=== PATIENT | male | born 1940 | race Two or more races ===

== ENCOUNTER 2017-07-20 21:58 | Emergency (ER) | payer OTHER ==
[~2017-07-20] VITALS: Ht 170.2 cm; Wt 85.3 kg
[~2017-07-20 21:58] MED LIST: CLOPIDOGREL BIS75 MG; FLEXERIL10 MG PO; GLUCOTROL5 MG/BOTTL; GLYBURIDE5 MG; HYDROCHLOROTHIA25 MG; IBUPROFEN800 MG PO; NABUMETONE750 MG PO; NORVASC5 MG; PLAVIX75 MG; PROTONIX40 MG PO; TENORMIN25 MG; ULTRACET PO; VASOTEC20 MG; ZANTAC300 MG PO
== END 2017-07-21 05:52 | disposition home or self-care (01) ==
LOC: ER 21:58 → CPU-OBS 21:59 → ER 21:59
DX: R07.89 Other chest pain (principal)
CPT/HCPCS: 93005; G0379

== ENCOUNTER 2019-11-09 11:36 | Emergency (ER) | payer OTHER ==
[~2019-11-09] VITALS: Ht 170.2 cm; Wt 83.5 kg
== END 2019-11-09 14:14 | disposition home or self-care (01) ==
LOC: ER 11:36
DX: S91.332A Puncture wound without foreign body, left foot, initial encounter (principal); W45.0XXA Nail entering through skin, initial encounter; Y93.01 Activity, walking, marching and hiking; Y92.413 State road as the place of occurrence of the external cause; Y99.8 Other external cause status

== ENCOUNTER 2020-11-10 07:43 | Inpatient (IN) | payer OTHER ==
[~2020-11-10] VITALS: Ht 170.2 cm; Wt 79.4 kg
[2020-11-10] MEDS ORDERED: TOPROL XL25 M1 (07:49)
[2020-11-10] MEDS ORDERED: GLIPIZIDE ER5 MG (07:49)
[2020-11-10] MEDS ORDERED: ZESTRIL20 MG (07:49)
[2020-11-10] MEDS ORDERED: PLAVIX75 MG (07:49)
[2020-11-10] MEDS ORDERED: DILTIAZEM ER120 M2 (07:50)
[2020-11-10] MEDS ORDERED: HYDROCHLOROTHIA25 MG (07:50)
== END 2020-11-13 15:39 | disposition home or self-care (01) | DRG 310 ==
LOC: ER 07:43 → MEDJ 13:23 → SEC-K 13:23 → MEDJ 15:59
PROVIDERS: ADMIT Specialist; ATTEND Specialist
PROC: B24BZZZ Ultrasonography of Heart with Aorta (ICD-10-PCS; 2020-11-10)
PROC: 4A12X4Z Monitoring of Cardiac Electrical Activity, External Approach (ICD-10-PCS; principal; 2020-11-11)
DX: I48.91 Unspecified atrial fibrillation (principal); I11.0 Hypertensive heart disease with heart failure; E11.9 Type 2 diabetes mellitus without complications; I50.9 Heart failure, unspecified; Z20.822 Contact with and (suspected) exposure to COVID-19; Z79.84 Long term (current) use of oral hypoglycemic drugs

== ENCOUNTER 2021-02-21 19:28 | Emergency (ER) | payer OTHER ==
[~2021-02-21] VITALS: Ht 170.2 cm; Wt 83.5 kg
[~2021-02-21 19:28] MED LIST changes: +DILTIAZEM ER120 M2; +GLIPIZIDE ER5 MG; +TOPROL XL25 M1; +ZESTRIL20 MG
== END 2021-02-21 22:37 | disposition home or self-care (01) ==
LOC: ER 19:28
DX: I10 Essential (primary) hypertension (principal); Z11.52 Encounter for screening for COVID-19

== ENCOUNTER 2021-03-22 10:00 | Emergency (ER) | payer OTHER ==
[~2021-03-22] VITALS: Ht 170.2 cm; Wt 83.5 kg
[2021-03-22] MEDS ORDERED: LEVSIN/SL0.125 MG PO (16:53)
[2021-03-22] MEDS ORDERED: PEPCID AC20 MG PO (16:53)
== END 2021-03-22 17:12 ==
LOC: ER 10:00
DX: K29.70 Gastritis, unspecified, without bleeding (principal); K76.9 Liver disease, unspecified; N28.1 Cyst of kidney, acquired; K57.90 Diverticulosis of intestine, part unspecified, without perforation or abscess without bleeding; I70.90 Unspecified atherosclerosis; D29.1 Benign neoplasm of prostate

== ENCOUNTER → 2021-05-03 | Emergency (ER) | payer OTHER ==
[~2021-05-03] VITALS: Ht 165.1 cm; Wt 79.8 kg
[~2021-05-03] MED LIST changes: +LEVSIN/SL0.125 MG PO; +PEPCID AC20 MG PO; +[UNRECOGNIZED DRUG - OTHER]
== END | disposition home or self-care (01) ==
LOC: ER 11:29
DX: I10 Essential (primary) hypertension (principal)

== ENCOUNTER 2022-08-02 16:36 | Emergency (ER) | payer OTHER ==
[~2022-08-02] VITALS: Ht 170.2 cm; Wt 84.8 kg
[2022-08-02] MEDS ORDERED: ATORVASTATIN CA20 MG (16:46)
[2022-08-02] MEDS ORDERED: AMLODIPINE-OLM1 EAC2 (16:46)
[2022-08-02] MEDS ORDERED: GLUMETZA500 MG (16:47)
[2022-08-02] MEDS ORDERED: COZAAR100 MG (16:47)
== END 2022-08-02 19:37 | disposition home or self-care (01) ==
LOC: ER 16:36
DX: R42 Dizziness and giddiness (principal); E11.9 Type 2 diabetes mellitus without complications; Z79.84 Long term (current) use of oral hypoglycemic drugs; I10 Essential (primary) hypertension

== ENCOUNTER 2024-07-18 13:48 | Emergency (ER) | payer OTHER ==
[~2024-07-18] VITALS: Ht 170.2 cm; Wt 85.3 kg
[~2024-07-18 13:48] MED LIST changes: +AMLODIPINE-OLM1 EAC2; +ATORVASTATIN CA20 MG; +COZAAR100 MG; +GLUMETZA500 MG
[2024-07-18 14:44] VITALS: BP 141/63; O2SAT 99
== END 2024-07-18 17:48 | disposition home or self-care (01) ==
LOC: ER 13:50
DX: R53.81 Other malaise (principal); R42 Dizziness and giddiness; I10 Essential (primary) hypertension; E11.9 Type 2 diabetes mellitus without complications; Z79.84 Long term (current) use of oral hypoglycemic drugs